=== PATIENT | female | born 1945 | race Caucasian/White ===

== ENCOUNTER 2019-12-20 14:29 | Inpatient (IN) | payer MEDICARE, OTHER, SELFPAY ==
--- NOTE | 2019-12-20 | CTR_ITS ---
PROCEDURE INFORMATION: Exam: CT Head Without Contrast Exam date and time: 12/20/2019 5:03 PM Age: 74 years old Clinical indication: Weakness, extremity; Right; Additional info: Stroke alert TECHNIQUE: Imaging protocol: Computed tomography of the head without contrast. Total DLP: 1294.38 mGy-cm Radiation optimization: All CT scans at this facility use at least one of these dose optimization techniques: automated exposure control; mA and/or kV adjustment per patient size (includes targeted exams where dose is matched to clinical indication); or iterative reconstruction. Other technique: STROKE PROTOCOL was implemented. COMPARISON: CT head wo con* [id number] 12/20/2019 3:37 PM FINDINGS: Brain: Mild diffuse cortical volume loss. Moderate-severe patchy hypodensities in supratentorial periventricular and subcortical white matter. Stable lacunar infarct in the right basal ganglia. No intracranial hemorrhage. Ventricles: Normal. No ventriculomegaly. Bones/joints: Unremarkable. No acute fracture. Sinuses: Visualized sinuses are unremarkable. No fluid levels. Mastoid air cells: Visualized mastoid air cells are well aerated. Soft tissues: Unremarkable. Vasculature: No hyperdense artery. CT/CT head wo con* [id number] IMPRESSION: 1. Stable CT head. No acute intracranial abnormality. 2. Moderate-severe microangiopathy. ASSESSMENT: ASPECTS ([place] Stroke Program Early CT Score) is 10. Radiation Dose CTDIVOL = (mGy): DLP = 1294.38 (mGy-cm)
[2019-12-20 14:39] VITALS: BP 134/99; PULSE 68; RESP 18; O2SAT 97; BMI 29.9
--- NOTE | 2019-12-20 14:50 | CT_ITS ---
WS: [id number] CT HEAD NONCONTRAST HISTORY: fall TECHNIQUE: Contiguous axial imaging performed through the brain in 2.5 mm imaging. Bone and soft tiss ue windows. Sagittal and coronal reformats reviewed. All CT scans at [facility] use at ast one of these dose optimization techniques: automated exposure control; mA and/or kV adjustment pe r patient size (includes targeted exams where dose is matched to clinical indication); or iterative r econstruction. DLP: 775.69 mGy.cm COMPARISON: 05/28/2019 No acute intracranial hemorrhage, midline shift or mass effect. Mild atrophy with severe chronic microvascular ischemic changes. Prior lacunar infarct anterior limb of the RIGHT internal capsule. Ventricles: Ventricles are mildly dilated on the basis of central and peripheral atrophy. No inferio r displacement of cerebellar tonsils. Paranasal sinuses: As visualized are clear. Mastoid air cells: Well pneumatized. Calvarium and scalp: Skull is intact with no soft tissue edema or swelling. Atherosclerosis of the intracranial carotid arteries. CT/CT head wo con* [id number] IMPRESSION: 1. No acute intracranial hemorrhage. 2. Severe chronic microvascular ischemic disease with a remote lacunar infarct RIGHT basal ganglia.
--- NOTE | 2019-12-20 14:51 | W.ED.FALL ---
Documented by User: MERLINE Infante 12/21/19 17:18 HPI - Fall General: Chief Complaint: Fall Stated Complaint: FALL Time Seen by Provider: 12/20/19 14:38 Source: patient Mode of arrival: ambulatory Limitations: no limitations History of Present Illness: HPI Narrative: Patient comes in today for complaints of fall. EMS reported that they had to go out and help patient twice today for a fall. Called EMS encourage patient to come in to be evaluated further. Patient reports that she feels fine but just cannot get up and go today. Patient has pain when she tries to lift the leg off the chair on the right hip. complaint: fall Review of Systems General: Reports: 10 or more systems reviewed and unremarkable except in HPI and below Musc: Reports: joint pain (right hip pain) Neuro: Reports: weakness in extremities PFSH ED PFSH: Statuses (acute, chronic, etc) shown below reflect problem list status as previously entered and may not be historically accurate Medical History COPD (chronic obstructive pulmonary disease) (Acute) Dementia (Acute) HTN (hypertension) (Acute) Hypothyroidism (Acute) Surgical History Hx of section (Acute) Hx of tubal ligation (Acute) Social History Smoking and tobacco status: former smoker Quit status (tobacco): has quit using tobacco Year quit tobacco: She reports quit 22 years ago, although this is not confirmed. Alcohol intake: unknown Substance/Drug Use: unknown Household members: spouse Marital status: Physical Exam Const: COMMON NORMALS: no apparent distress and oriented x3 GENERAL APPEARANCE: cooperative HENMT: COMMON NORMALS: normocephalic, external ears normal, EAC's normal, TM's normal bilaterally and external nose normal HEAD & SCALP: normal to inspection and normocephalic FACE & SINUS: normal facial exam NOSE: external nose normal GENERAL EAR: hearing not grossly impaired EXTERNAL EAR: Yes external ears normal EXTERNAL AUDITORY CANAL: EAC's normal TYMPANIC MEMBRANE: TM's normal bilaterally MOUTH: oral and palatal mucosa normal THROAT: posterior oropharynx normal Eye: COMMON NORMALS: PERRL and EOMs intact bilaterally PUPIL: Yes PERRL Neck/C-Spine: COMMON NORMALS: full ROM and no lymphadenopathy Lymph: LYMPHATIC: no lymphedema noted Chest: COMMONS NORMALS: inspection of chest normal and palpation of chest normal Resp: COMMON NORMALS: normal respiratory effort and clear to auscultation bilaterally AUSCULTATION: clear to auscultation bilaterally Cardio: COMMON NORMALS: regular rate and regular rhythm RATE: regular rate RHYTHM: regular rhythm GI: COMMON NORMALS: normal to inspection, nondistended, normoactive bowel sounds and non-tender : COMMON NORMALS: Yes no CVA tenderness BLADDER/KIDNEY EXAM: Yes no CVA tenderness Back/Pelvis: COMMON NORMALS: no CVA tenderness and thoracic and lumbar spine normal to inspection Extremity: GENERAL: Yes edema RIGHT LOWER EXTREMITY: Yes hip joint (hip pain with movement) Neuro: COMMON NORMALS: oriented x3, moves all extremities and no focal motor deficits Psych: COMMON NORMALS: mental status grossly normal and cooperative Skin: COMMON NORMALS: no rashes or lesions noted GENERAL SKIN EXAM: no rashes or lesions noted Course ED course: 1600, reviewing lab with patient. Patient would like to go home but cannot stand by herself, further evaluation of patient note right leg and arm weakness. and right facial drooping. NIHSS of 8, wjw 1615, reviewed with Dr. Patiño regarding abnormalities on repeat exam, recommended further evaluation. wjw Vital Signs: Vital signs: Vital Signs Temperature 98.2 F 12/21/19 16:00 Pulse Rate 64 12/21/19 16:00 Respiratory Rate 20 H 12/21/19 16:00 Blood Pressure 160/82 12/21/19 16:00 Pulse Oximetry 97 12/21/19 16:00 MDM - Fall MDM Narrative: Medical decision making narrative: patient was brought in for repeat falls at home, after initial evaluation it was noted facial drooping and deficits to right arm and lower leg. Dr. Patiño was consulted and agreed to continue care of patient Lab Data: Labs: Lab Results 12/20/19 12/20/19 12/20/19 Range/Units 15:02 15:02 15:02 WBC 7.2 (4.0-10.0) 10^3/ uL RBC 4.83 (4.1-5.3) 10^6/u L Hgb 14.1 (11.5-15.3) g/dL Hct 43.6 (37.0-47.0) % MCV 90.3 (81-99) fL MCH 29.2 (28.0-34.0) pg MCHC 32.3 (30.0-36.0) g/dL RDW 13.3 (12.1-15.1) % Plt Count 196 (130-400) 10^3/c mm MPV 8.4 (7.4-10.4) fL Neut % (Auto) 70.2 % Lymph % (Auto) 21.3 % [place] % (Auto) 7.8 % Eos % (Auto) 0.1 % Baso % (Auto) 0.3 % Neut # (Auto) 5.0 (1.8-7.7) 10^3/u L Lymph # (Auto) 1.5 (0.8-4.8) 10^3/u L [place] # (Auto) 0.6 (0.2-0.9) 10^3/u L Eos # (Auto) 0.0 (0.0-0.8) 10^3/u L Baso # (Auto) 0.0 (0.0-0.1) 10^3/u L Nucleated RBC % (a uto) 0 % Nucleated RBCs # 0.0 /100WBC Sodium 138 (136-145) mmol/L Potassium 4.3 (3.5-5.1) mmol/L Chloride 103 (98-107) mmol/L Carbon Dioxide 23 (22-29) mmol/L Anion Gap 16.3 (5-19) BUN 12 (8-23) mg/dL Creatinine 0.8 (0.5-0.9) mg/dL Glucose 118 H (74-106) mg/dL Estimat Average Gl ucose Hemoglobin A1c (4.0-6.0) % Lactic Acid 1.5 (0.5-2.2) mmol/L Calcium 9.5 (8.5-10.5) mg/dL Total Bilirubin 0.6 (0.15-1.2) mg/dL AST 14 (0-32) U/L ALT 6 (0-33) U/L Alkaline Phosphata se 69 (35-105) IU/L Ammonia (11-51) umol/L Troponin I 6 Hour (0-10) ng/L Troponin I Hi Sens Del (0-12) ng/L Troponin T Baselin e (0-10) ng/mL Troponin T 120 Min [place] (0-10) ng/mL Delta Troponin T (0-10) ABS# Total Protein 6.6 (6.6-8.7) g/dL Albumin 4.0 (3.5-5.2) g/dL Globulin 2.6 (1.3-4.6) g/dL Vitamin B12 (232-1245) pg/mL Folate (4.8-37.3) ng/mL TSH (0.27-4.20) uIU/ mL Urine Color (Yellow) Urine Appearance (CLEAR) Urine pH (5-7) Ur Specific Gravit y (1.005-1.030) Urine Protein (Negative) Urine Glucose (UA) (Normal) Urine Ketones (Negative) Urine Occult Blood (Negative) Urine Nitrate (Negative) Urine Bilirubin (NEGATIVE) Urine Urobilinogen (Negative) mg/dL Ur Leukocyte Ann ase (Negative) Urine RBC (0-2) /hpf Urine WBC (0-5) /hpf Ur Squamous Epith Cells (0-5) Urine Bacteria (NONE) Urine Opiates Scre en (Negative) ng/mL Ur Barbiturates Sc reen (Negative) ng/mL Ur Phencyclidine S crn (Negative) ng/mL Ur Amphetamines Sc reen (Negative) ng/mL U Benzodiazepines Scrn (Negative) ng/mL Urine Cocaine Scre en (Negative) ng/mL U Marijuana (THC) Screen (Negative) ng/mL Ethyl Alcohol (0-10) mg/dL 12/20/19 12/20/19 12/20/19 Range/Units 15:02 15:02 15:02 WBC (4.0-10.0) 10^3/ uL RBC (4.1-5.3) 10^6/u L Hgb (11.5-15.3) g/dL Hct (37.0-47.0) % MCV (81-99) fL MCH (28.0-34.0) pg MCHC (30.0-36.0) g/dL RDW (12.1-15.1) % Plt Count (130-400) 10^3/c mm MPV (7.4-10.4) fL Neut % (Auto) % Lymph % (Auto) % [place] % (Auto) % Eos % (Auto) % Baso % (Auto) % Neut # (Auto) (1.8-7.7) 10^3/u L Lymph # (Auto) (0.8-4.8) 10^3/u L [place] # (Auto) (0.2-0.9) 10^3/u L Eos # (Auto) (0.0-0.8) 10^3/u L Baso # (Auto) (0.0-0.1) 10^3/u L Nucleated RBC % (a uto) % Nucleated RBCs # /100WBC Sodium (136-145) mmol/L Potassium (3.5-5.1) mmol/L Chloride (98-107) mmol/L Carbon Dioxide (22-29) mmol/L Anion Gap (5-19) BUN (8-23) mg/dL Creatinine (0.5-0.9) mg/dL Glucose (74-106) mg/dL Estimat Average Gl ucose 111 Hemoglobin A1c 5.5 (4.0-6.0) % Lactic Acid (0.5-2.2) mmol/L Calcium (8.5-10.5) mg/dL Total Bilirubin (0.15-1.2) mg/dL AST (0-32) U/L ALT (0-33) U/L Alkaline Phosphata se (35-105) IU/L Ammonia (11-51) umol/L Troponin I 6 Hour (0-10) ng/L Troponin I Hi Sens Del (0-12) ng/L Troponin T Baselin e 12 H (0-10) ng/mL Troponin T 120 Min [place] (0-10) ng/mL Delta Troponin T (0-10) ABS# Total Protein (6.6-8.7) g/dL Albumin (3.5-5.2) g/dL Globulin (1.3-4.6) g/dL Vitamin B12 (232-1245) pg/mL Folate (4.8-37.3) ng/mL TSH (0.27-4.20) uIU/ mL Urine Color (Yellow) Urine Appearance (CLEAR) Urine pH (5-7) Ur Specific Gravit y (1.005-1.030) Urine Protein (Negative) Urine Glucose (UA) (Normal) Urine Ketones (Negative) Urine Occult Blood (Negative) Urine Nitrate (Negative) Urine Bilirubin (NEGATIVE) Urine Urobilinogen (Negative) mg/dL Ur Leukocyte Ann ase (Negative) Urine RBC (0-2) /hpf Urine WBC (0-5) /hpf Ur Squamous Epith Cells (0-5) Urine Bacteria (NONE) Urine Opiates Scre en (Negative) ng/mL Ur Barbiturates Sc reen (Negative) ng/mL Ur Phencyclidine S crn (Negative) ng/mL Ur Amphetamines Sc reen (Negative) ng/mL U Benzodiazepines Scrn (Negative) ng/mL Urine Cocaine Scre en (Negative) ng/mL U Marijuana (THC) Screen (Negative) ng/mL Ethyl Alcohol < 10 (0-10) mg/dL 12/20/19 12/20/19 12/20/19 Range/Units 15:02 17:16 17:16 WBC (4.0-10.0) 10^3/ uL RBC (4.1-5.3) 10^6/u L Hgb (11.5-15.3) g/dL Hct (37.0-47.0) % MCV (81-99) fL MCH (28.0-34.0) pg MCHC (30.0-36.0) g/dL RDW (12.1-15.1) % Plt Count (130-400) 10^3/c mm MPV (7.4-10.4) fL Neut % (Auto) % Lymph % (Auto) % [place] % (Auto) % Eos % (Auto) % Baso % (Auto) % Neut # (Auto) (1.8-7.7) 10^3/u L Lymph # (Auto) (0.8-4.8) 10^3/u L [place] # (Auto) (0.2-0.9) 10^3/u L Eos # (Auto) (0.0-0.8) 10^3/u L Baso # (Auto) (0.0-0.1) 10^3/u L Nucleated RBC % (a uto) % Nucleated RBCs # /100WBC Sodium (136-145) mmol/L Potassium (3.5-5.1) mmol/L Chloride (98-107) mmol/L Carbon Dioxide (22-29) mmol/L Anion Gap (5-19) BUN (8-23) mg/dL Creatinine (0.5-0.9) mg/dL Glucose (74-106) mg/dL Estimat Average Gl ucose Hemoglobin A1c (4.0-6.0) % Lactic Acid (0.5-2.2) mmol/L Calcium (8.5-10.5) mg/dL Total Bilirubin (0.15-1.2) mg/dL AST (0-32) U/L ALT (0-33) U/L Alkaline Phosphata se (35-105) IU/L Ammonia (11-51) umol/L Troponin I 6 Hour (0-10) ng/L Troponin I Hi Sens Del (0-12) ng/L Troponin T Baselin e (0-10) ng/mL Troponin T 120 Min [place] 11.77 H (0-10) ng/mL Delta Troponin T -0.23 L (0-10) ABS# Total Protein (6.6-8.7) g/dL Albumin (3.5-5.2) g/dL Globulin (1.3-4.6) g/dL Vitamin B12 196 L (232-1245) pg/mL Folate 2.1 L (4.8-37.3) ng/mL TSH 3.76 (0.27-4.20) uIU/ mL Urine Color (Yellow) Urine Appearance (CLEAR) Urine pH (5-7) Ur Specific Gravit y (1.005-1.030) Urine Protein (Negative) Urine Glucose (UA) (Normal) Urine Ketones (Negative) Urine Occult Blood (Negative) Urine Nitrate (Negative) Urine Bilirubin (NEGATIVE) Urine Urobilinogen (Negative) mg/dL Ur Leukocyte Ann ase (Negative) Urine RBC (0-2) /hpf Urine WBC (0-5) /hpf Ur Squamous Epith Cells (0-5) Urine Bacteria (NONE) Urine Opiates Scre en (Negative) ng/mL Ur Barbiturates Sc reen (Negative) ng/mL Ur Phencyclidine S crn (Negative) ng/mL Ur Amphetamines Sc reen (Negative) ng/mL U Benzodiazepines Scrn (Negative) ng/mL Urine Cocaine Scre en (Negative) ng/mL U Marijuana (THC) Screen (Negative) ng/mL Ethyl Alcohol (0-10) mg/dL 12/20/19 12/20/19 12/21/19 Range/Units 17:30 22:15 00:46 WBC (4.0-10.0) 10^3/ uL RBC (4.1-5.3) 10^6/u L Hgb (11.5-15.3) g/dL Hct (37.0-47.0) % MCV (81-99) fL MCH (28.0-34.0) pg MCHC (30.0-36.0) g/dL RDW (12.1-15.1) % Plt Count (130-400) 10^3/c mm MPV (7.4-10.4) fL Neut % (Auto) % Lymph % (Auto) % [place] % (Auto) % Eos % (Auto) % Baso % (Auto) % Neut # (Auto) (1.8-7.7) 10^3/u L Lymph # (Auto) (0.8-4.8) 10^3/u L [place] # (Auto) (0.2-0.9) 10^3/u L Eos # (Auto) (0.0-0.8) 10^3/u L Baso # (Auto) (0.0-0.1) 10^3/u L Nucleated RBC % (a uto) % Nucleated RBCs # /100WBC Sodium (136-145) mmol/L Potassium (3.5-5.1) mmol/L Chloride (98-107) mmol/L Carbon Dioxide (22-29) mmol/L Anion Gap (5-19) BUN (8-23) mg/dL Creatinine (0.5-0.9) mg/dL Glucose (74-106) mg/dL Estimat Average Gl ucose Hemoglobin A1c (4.0-6.0) % Lactic Acid (0.5-2.2) mmol/L Calcium (8.5-10.5) mg/dL Total Bilirubin (0.15-1.2) mg/dL AST (0-32) U/L ALT (0-33) U/L Alkaline Phosphata se (35-105) IU/L Ammonia 23 (11-51) umol/L Troponin I 6 Hour 12.81 H (0-10) ng/L Troponin I Hi Sens Del 0.81 (0-12) ng/L Troponin T Baselin e (0-10) ng/mL Troponin T 120 Min [place] (0-10) ng/mL Delta Troponin T (0-10) ABS# Total Protein (6.6-8.7) g/dL Albumin (3.5-5.2) g/dL Globulin (1.3-4.6) g/dL Vitamin B12 (232-1245) pg/mL Folate (4.8-37.3) ng/mL TSH (0.27-4.20) uIU/ mL Urine Color (Yellow) Urine Appearance (CLEAR) Urine pH (5-7) Ur Specific Gravit y (1.005-1.030) Urine Protein (Negative) Urine Glucose (UA) (Normal) Urine Ketones (Negative) Urine Occult Blood (Negative) Urine Nitrate (Negative) Urine Bilirubin (NEGATIVE) Urine Urobilinogen (Negative) mg/dL Ur Leukocyte Ann ase (Negative) Urine RBC (0-2) /hpf Urine WBC (0-5) /hpf Ur Squamous Epith Cells (0-5) Urine Bacteria (NONE) Urine Opiates Scre en Negative (Negative) ng/mL Ur Barbiturates Sc reen Negative (Negative) ng/mL Ur Phencyclidine S crn Negative (Negative) ng/mL Ur Amphetamines Sc reen Negative (Negative) ng/mL U Benzodiazepines Scrn Negative (Negative) ng/mL Urine Cocaine Scre en Negative (Negative) ng/mL U Marijuana (THC) Screen Negative (Negative) ng/mL Ethyl Alcohol (0-10) mg/dL 12/21/19 12/21/19 12/21/19 Range/Units 00:46 03:57 03:57 WBC 6.0 (4.0-10.0) 10^3/ uL RBC 4.28 (4.1-5.3) 10^6/u L Hgb 12.8 (11.5-15.3) g/dL Hct 37.9 (37.0-47.0) % MCV 88.6 (81-99) fL MCH 29.9 (28.0-34.0) pg MCHC 33.8 (30.0-36.0) g/dL RDW 13.3 (12.1-15.1) % Plt Count 177 (130-400) 10^3/c mm MPV 8.6 (7.4-10.4) fL Neut % (Auto) 49.9 % Lymph % (Auto) 41.1 % [place] % (Auto) 7.6 % Eos % (Auto) 0.8 % Baso % (Auto) 0.3 % Neut # (Auto) 3.0 (1.8-7.7) 10^3/u L Lymph # (Auto) 2.5 (0.8-4.8) 10^3/u L [place] # (Auto) 0.5 (0.2-0.9) 10^3/u L Eos # (Auto) 0.1 (0.0-0.8) 10^3/u L Baso # (Auto) 0.0 (0.0-0.1) 10^3/u L Nucleated RBC % (a uto) 0 % Nucleated RBCs # 0.0 /100WBC Sodium 138 (136-145) mmol/L Potassium 3.8 (3.5-5.1) mmol/L Chloride 104 (98-107) mmol/L Carbon Dioxide 24 (22-29) mmol/L Anion Gap 13.8 (5-19) BUN 10 (8-23) mg/dL Creatinine 0.7 (0.5-0.9) mg/dL Glucose 113 H (74-106) mg/dL Estimat Average Gl ucose Hemoglobin A1c (4.0-6.0) % Lactic Acid (0.5-2.2) mmol/L Calcium 8.7 (8.5-10.5) mg/dL Total Bilirubin 0.6 (0.15-1.2) mg/dL AST 14 (0-32) U/L ALT 6 (0-33) U/L Alkaline Phosphata se 57 (35-105) IU/L Ammonia (11-51) umol/L Troponin I 6 Hour (0-10) ng/L Troponin I Hi Sens Del (0-12) ng/L Troponin T Baselin e (0-10) ng/mL Troponin T 120 Min [place] (0-10) ng/mL Delta Troponin T (0-10) ABS# Total Protein 5.5 L (6.6-8.7) g/dL Albumin 3.1 L (3.5-5.2) g/dL Globulin 2.4 (1.3-4.6) g/dL Vitamin B12 (232-1245) pg/mL Folate (4.8-37.3) ng/mL TSH (0.27-4.20) uIU/ mL Urine Color Yellow (Yellow) Urine Appearance Clear (CLEAR) Urine pH 8 H (5-7) Ur Specific Gravit y 1.010 (1.005-1.030) Urine Protein Neg (Negative) Urine Glucose (UA) Norm (Normal) Urine Ketones Negative (Negative) Urine Occult Blood Trace H (Negative) Urine Nitrate Negative (Negative) Urine Bilirubin Neg (NEGATIVE) Urine Urobilinogen Norm (Negative) mg/dL Ur Leukocyte Ann ase 2+ H (Negative) Urine RBC 5-10 H (0-2) /hpf Urine WBC 80-100 H (0-5) /hpf Ur Squamous Epith Cells 0-4 H (0-5) Urine Bacteria 2+ H (NONE) Urine Opiates Scre en (Negative) ng/mL Ur Barbiturates Sc reen (Negative) ng/mL Ur Phencyclidine S crn (Negative) ng/mL Ur Amphetamines Sc reen (Negative) ng/mL U Benzodiazepines Scrn (Negative) ng/mL Urine Cocaine Scre en (Negative) ng/mL U Marijuana (THC) Screen (Negative) ng/mL Ethyl Alcohol (0-10) mg/dL Discharge Plan Discharge Patient Disposition: Admitted As Inpatient Admit Provider: Douglas Charles Clinical Impression: Acute CVA (cerebrovascular accident), HTN (hypertension), COPD (chronic obstructive pulmonary disease), Hypothyroidism, Dementia, Recurrent falls Condition: Stable Discharge Date/Time: 12/20/19 21:38 Coding Level of Care Code ED Flue Cleaner for Chg Fwd Exam Problem Focused Documented by User: James Patiño DO 12/21/19 06:08 HPI - Fall General: Chief Complaint: Fall Stated Complaint: FALL Time Seen by Provider: 12/20/19 14:38 History of Present Illness: HPI Narrative: 74-year-old female initially seen by the PA. She has weakness on her right side. The nurse scored her at an 8 when I seen the patient on this recording we are ready for. She does have little speech almost slurring like however when talking to her he says is what she normally talks like she is able to pronounce complicated words like adversarial without any difficulty. I score her out of 4. When you look for last known well her relates that sometime around 8 this morning he noticed there is a problem but he cannot really quantify if she woke up that way or did not so there is some question as to exactly what time this began and it may have been a wake-up issue. She is not interested in any kind of intervention and actually wanted to go home had to convince her to stay just for observation because of the continued weakness particularly in her right leg. Associated symptoms-after fall: Denies abdominal pain or chest pain Review of Systems Const: Denies: fever, chills, body aches, change in appetite, fatigue or malaise ENMT: Denies: throat pain, ear pain, nasal discharge or nasal congestion Card: Denies: chest pain, edema, shortness of breath on exertion or shortness of breath when lying down Resp: Denies: shortness of breath, productive cough or non-productive cough GI: Denies: abdominal pain, nausea, vomiting, vomiting blood, coffee grounds in vomit, diarrhea, constipation, bloating, blood in stool or black tarry stool : Denies: flank pain, difficulty urinating, painful urination, urinary frequency or urinary urgency Skin/Breast: Denies: rash or itching PFSH ED PFSH: Statuses (acute, chronic, etc) shown below reflect problem list status as previously entered and may not be historically accurate Medical History COPD (chronic obstructive pulmonary disease) (Acute) Dementia (Acute) HTN (hypertension) (Acute) Hypothyroidism (Acute) Surgical History Hx of section (Acute) Hx of tubal ligation (Acute) Social History Smoking and tobacco status: former smoker Quit status (tobacco): has quit using tobacco Year quit tobacco: She reports quit 22 years ago, although this is not confirmed. Alcohol intake: unknown Substance/Drug Use: unknown Household members: spouse Marital status: Physical Exam Const: COMMON NORMALS: no apparent distress GENERAL APPEARANCE: comfortable ORIENTATION/CONSCIOUSNESS: Yes awake HENMT: COMMON NORMALS: normocephalic, head/scalp atraumatic, hearing grossly normal bilaterally, external ears normal, EAC's normal, TM's normal bilaterally, nasal mucous membranes and turbinates normal, moist oral mucous membranes and oropharynx normal HEAD & SCALP: normocephalic and atraumatic NOSE: nasal mucous membranes and turbinates normal EXTERNAL EAR: Yes external ears normal EXTERNAL AUDITORY CANAL: EAC's normal TYMPANIC MEMBRANE: TM's normal bilaterally Eye: COMMON NORMALS: PERRL, EOMs intact bilaterally, conjunctivae normal and no scleral icterus CONJUNCTIVA: Yes conjunctivae normal PUPIL: Yes PERRL Neck/C-Spine: COMMON NORMALS: full ROM, no lymphadenopathy, supple and no JVD Lymph: LYMPHATIC: no lymphadenopathy noted and no lymphedema noted Resp: COMMON NORMALS: normal respiratory effort, no retractions, no use of accessory muscles and clear to auscultation bilaterally AUSCULTATION: clear to auscultation bilaterally Cardio: COMMON NORMALS: no JVD, regular rate, regular rhythm and no murmurs RATE: regular rate RHYTHM: regular rhythm GI: COMMON NORMALS: soft to palpation and no hepatosplenomegaly AUSCULTATION: Yes normoactive bowel sounds PALPATION: Yes soft, No tender, No guarding and Yes no hepatosplenomegaly Extremity: COMMON NORMALS: normal to inspection, normal capillary refill, no clubbing, cyanosis or edema, no calf tenderness and no pedal edema Neuro: SPEECH: no other OTHER: Patient has weakness on the right side with some right arm drift she is not able to lift the heel off the bed on the right leg. She is somewhat confused she does not recall that she previously had a right hip arthroplasty which is demonstrated on x-ray. She is able to enunciate words quite well she is a little speech variance but according to her that is her normal baseline. She does have some confusion as well which she also states is at her normal baseline. Skin: COMMON NORMALS: no rashes or lesions noted GENERAL SKIN EXAM: no rashes or lesions noted Course ED course: Patient initially seen by midlevel I CT was done and a stroke alert was called and another CT evidently was done both of which were negative. We cannot really get a very solid last known well time she does have some baseline dementia which also confuses things. Her stroke score at this time is a 4 felt like she may have already improved some. The triage nurse had her as an 8 her states he first encounter this morning at 8 AM but he is not sure that she did not wake up with some of her symptoms. Patient is not interested at all in doing anything in fact we had to convince her to stay here at the hospital. I do think she may have had a small stroke but is already improving she is outside of any window of time for TPA and her stroke score at the time that I seen the patient was a 4 taking her outside the window for any thrombo-embolic intervention. Vital Signs: Vital signs: Vital Signs Temperature 98.2 F 12/21/19 16:00 Pulse Rate 64 12/21/19 16:00 Respiratory Rate 20 H 12/21/19 16:00 Blood Pressure 160/82 12/21/19 16:00 Pulse Oximetry 97 12/21/19 16:00 MDM - Fall Lab Data: Labs: Lab Results 12/20/19 12/20/19 12/20/19 Range/Units 15:02 15:02 15:02 WBC 7.2 (4.0-10.0) 10^3/ uL RBC 4.83 (4.1-5.3) 10^6/u L Hgb 14.1 (11.5-15.3) g/dL Hct 43.6 (37.0-47.0) % MCV 90.3 (81-99) fL MCH 29.2 (28.0-34.0) pg MCHC 32.3 (30.0-36.0) g/dL RDW 13.3 (12.1-15.1) % Plt Count 196 (130-400) 10^3/c mm MPV 8.4 (7.4-10.4) fL Neut % (Auto) 70.2 % Lymph % (Auto) 21.3 % [place] % (Auto) 7.8 % Eos % (Auto) 0.1 % Baso % (Auto) 0.3 % Neut # (Auto) 5.0 (1.8-7.7) 10^3/u L Lymph # (Auto) 1.5 (0.8-4.8) 10^3/u L [place] # (Auto) 0.6 (0.2-0.9) 10^3/u L Eos # (Auto) 0.0 (0.0-0.8) 10^3/u L Baso # (Auto) 0.0 (0.0-0.1) 10^3/u L Nucleated RBC % (a uto) 0 % Nucleated RBCs # 0.0 /100WBC Sodium 138 (136-145) mmol/L Potassium 4.3 (3.5-5.1) mmol/L Chloride 103 (98-107) mmol/L Carbon Dioxide 23 (22-29) mmol/L Anion Gap 16.3 (5-19) BUN 12 (8-23) mg/dL Creatinine 0.8 (0.5-0.9) mg/dL Glucose 118 H (74-106) mg/dL Estimat Average Gl ucose Hemoglobin A1c (4.0-6.0) % Lactic Acid 1.5 (0.5-2.2) mmol/L Calcium 9.5 (8.5-10.5) mg/dL Total Bilirubin 0.6 (0.15-1.2) mg/dL AST 14 (0-32) U/L ALT 6 (0-33) U/L Alkaline Phosphata se 69 (35-105) IU/L Ammonia (11-51) umol/L Troponin I 6 Hour (0-10) ng/L Troponin I Hi Sens Del (0-12) ng/L Troponin T Baselin e (0-10) ng/mL Troponin T 120 Min [place] (0-10) ng/mL Delta Troponin T (0-10) ABS# Total Protein 6.6 (6.6-8.7) g/dL Albumin 4.0 (3.5-5.2) g/dL Globulin 2.6 (1.3-4.6) g/dL Vitamin B12 (232-1245) pg/mL Folate (4.8-37.3) ng/mL TSH (0.27-4.20) uIU/ mL Urine Color (Yellow) Urine Appearance (CLEAR) Urine pH (5-7) Ur Specific Gravit y (1.005-1.030) Urine Protein (Negative) Urine Glucose (UA) (Normal) Urine Ketones (Negative) Urine Occult Blood (Negative) Urine Nitrate (Negative) Urine Bilirubin (NEGATIVE) Urine Urobilinogen (Negative) mg/dL Ur Leukocyte Ann ase (Negative) Urine RBC (0-2) /hpf Urine WBC (0-5) /hpf Ur Squamous Epith Cells (0-5) Urine Bacteria (NONE) Urine Opiates Scre en (Negative) ng/mL Ur Barbiturates Sc reen (Negative) ng/mL Ur Phencyclidine S crn (Negative) ng/mL Ur Amphetamines Sc reen (Negative) ng/mL U Benzodiazepines Scrn (Negative) ng/mL Urine Cocaine Scre en (Negative) ng/mL U Marijuana (THC) Screen (Negative) ng/mL Ethyl Alcohol (0-10) mg/dL 12/20/19 12/20/19 12/20/19 Range/Units 15:02 15:02 15:02 WBC (4.0-10.0) 10^3/ uL RBC (4.1-5.3) 10^6/u L Hgb (11.5-15.3) g/dL Hct (37.0-47.0) % MCV (81-99) fL MCH (28.0-34.0) pg MCHC (30.0-36.0) g/dL RDW (12.1-15.1) % Plt Count (130-400) 10^3/c mm MPV (7.4-10.4) fL Neut % (Auto) % Lymph % (Auto) % [place] % (Auto) % Eos % (Auto) % Baso % (Auto) % Neut # (Auto) (1.8-7.7) 10^3/u L Lymph # (Auto) (0.8-4.8) 10^3/u L [place] # (Auto) (0.2-0.9) 10^3/u L Eos # (Auto) (0.0-0.8) 10^3/u L Baso # (Auto) (0.0-0.1) 10^3/u L Nucleated RBC % (a uto) % Nucleated RBCs # /100WBC Sodium (136-145) mmol/L Potassium (3.5-5.1) mmol/L Chloride (98-107) mmol/L Carbon Dioxide (22-29) mmol/L Anion Gap (5-19) BUN (8-23) mg/dL Creatinine (0.5-0.9) mg/dL Glucose (74-106) mg/dL Estimat Average Gl ucose 111 Hemoglobin A1c 5.5 (4.0-6.0) % Lactic Acid (0.5-2.2) mmol/L Calcium (8.5-10.5) mg/dL Total Bilirubin (0.15-1.2) mg/dL AST (0-32) U/L ALT (0-33) U/L Alkaline Phosphata se (35-105) IU/L Ammonia (11-51) umol/L Troponin I 6 Hour (0-10) ng/L Troponin I Hi Sens Del (0-12) ng/L Troponin T Baselin e 12 H (0-10) ng/mL Troponin T 120 Min [place] (0-10) ng/mL Delta Troponin T (0-10) ABS# Total Protein (6.6-8.7) g/dL Albumin (3.5-5.2) g/dL Globulin (1.3-4.6) g/dL Vitamin B12 (232-1245) pg/mL Folate (4.8-37.3) ng/mL TSH (0.27-4.20) uIU/ mL Urine Color (Yellow) Urine Appearance (CLEAR) Urine pH (5-7) Ur Specific Gravit y (1.005-1.030) Urine Protein (Negative) Urine Glucose (UA) (Normal) Urine Ketones (Negative) Urine Occult Blood (Negative) Urine Nitrate (Negative) Urine Bilirubin (NEGATIVE) Urine Urobilinogen (Negative) mg/dL Ur Leukocyte Ann ase (Negative) Urine RBC (0-2) /hpf Urine WBC (0-5) /hpf Ur Squamous Epith Cells (0-5) Urine Bacteria (NONE) Urine Opiates Scre en (Negative) ng/mL Ur Barbiturates Sc reen (Negative) ng/mL Ur Phencyclidine S crn (Negative) ng/mL Ur Amphetamines Sc reen (Negative) ng/mL U Benzodiazepines Scrn (Negative) ng/mL Urine Cocaine Scre en (Negative) ng/mL U Marijuana (THC) Screen (Negative) ng/mL Ethyl Alcohol < 10 (0-10) mg/dL 12/20/19 12/20/19 12/20/19 Range/Units 15:02 17:16 17:16 WBC (4.0-10.0) 10^3/ uL RBC (4.1-5.3) 10^6/u L Hgb (11.5-15.3) g/dL Hct (37.0-47.0) % MCV (81-99) fL MCH (28.0-34.0) pg MCHC (30.0-36.0) g/dL RDW (12.1-15.1) % Plt Count (130-400) 10^3/c mm MPV (7.4-10.4) fL Neut % (Auto) % Lymph % (Auto) % [place] % (Auto) % Eos % (Auto) % Baso % (Auto) % Neut # (Auto) (1.8-7.7) 10^3/u L Lymph # (Auto) (0.8-4.8) 10^3/u L [place] # (Auto) (0.2-0.9) 10^3/u L Eos # (Auto) (0.0-0.8) 10^3/u L Baso # (Auto) (0.0-0.1) 10^3/u L Nucleated RBC % (a uto) % Nucleated RBCs # /100WBC Sodium (136-145) mmol/L Potassium (3.5-5.1) mmol/L Chloride (98-107) mmol/L Carbon Dioxide (22-29) mmol/L Anion Gap (5-19) BUN (8-23) mg/dL Creatinine (0.5-0.9) mg/dL Glucose (74-106) mg/dL Estimat Average Gl ucose Hemoglobin A1c (4.0-6.0) % Lactic Acid (0.5-2.2) mmol/L Calcium (8.5-10.5) mg/dL Total Bilirubin (0.15-1.2) mg/dL AST (0-32) U/L ALT (0-33) U/L Alkaline Phosphata se (35-105) IU/L Ammonia (11-51) umol/L Troponin I 6 Hour (0-10) ng/L Troponin I Hi Sens Del (0-12) ng/L Troponin T Baselin e (0-10) ng/mL Troponin T 120 Min [place] 11.77 H (0-10) ng/mL Delta Troponin T -0.23 L (0-10) ABS# Total Protein (6.6-8.7) g/dL Albumin (3.5-5.2) g/dL Globulin (1.3-4.6) g/dL Vitamin B12 196 L (232-1245) pg/mL Folate 2.1 L (4.8-37.3) ng/mL TSH 3.76 (0.27-4.20) uIU/ mL Urine Color (Yellow) Urine Appearance (CLEAR) Urine pH (5-7) Ur Specific Gravit y (1.005-1.030) Urine Protein (Negative) Urine Glucose (UA) (Normal) Urine Ketones (Negative) Urine Occult Blood (Negative) Urine Nitrate (Negative) Urine Bilirubin (NEGATIVE) Urine Urobilinogen (Negative) mg/dL Ur Leukocyte Ann ase (Negative) Urine RBC (0-2) /hpf Urine WBC (0-5) /hpf Ur Squamous Epith Cells (0-5) Urine Bacteria (NONE) Urine Opiates Scre en (Negative) ng/mL Ur Barbiturates Sc reen (Negative) ng/mL Ur Phencyclidine S crn (Negative) ng/mL Ur Amphetamines Sc reen (Negative) ng/mL U Benzodiazepines Scrn (Negative) ng/mL Urine Cocaine Scre en (Negative) ng/mL U Marijuana (THC) Screen (Negative) ng/mL Ethyl Alcohol (0-10) mg/dL 12/20/19 12/20/19 12/21/19 Range/Units 17:30 22:15 00:46 WBC (4.0-10.0) 10^3/ uL RBC (4.1-5.3) 10^6/u L Hgb (11.5-15.3) g/dL Hct (37.0-47.0) % MCV (81-99) fL MCH (28.0-34.0) pg MCHC (30.0-36.0) g/dL RDW (12.1-15.1) % Plt Count (130-400) 10^3/c mm MPV (7.4-10.4) fL Neut % (Auto) % Lymph % (Auto) % [place] % (Auto) % Eos % (Auto) % Baso % (Auto) % Neut # (Auto) (1.8-7.7) 10^3/u L Lymph # (Auto) (0.8-4.8) 10^3/u L Kenedy # (Auto) (0.2-0.9) 10^3/u L Eos # (Auto) (0.0-0.8) 10^3/u L Baso # (Auto) (0.0-0.1) 10^3/u L Nucleated RBC % (a uto) % Nucleated RBCs # /100WBC Sodium (136-145) mmol/L Potassium (3.5-5.1) mmol/L Chloride (98-107) mmol/L Carbon Dioxide (22-29) mmol/L Anion Gap (5-19) BUN (8-23) mg/dL Creatinine (0.5-0.9) mg/dL Glucose (74-106) mg/dL Estimat Average Gl ucose Hemoglobin A1c (4.0-6.0) % Lactic Acid (0.5-2.2) mmol/L Calcium (8.5-10.5) mg/dL Total Bilirubin (0.15-1.2) mg/dL AST (0-32) U/L ALT (0-33) U/L Alkaline Phosphata se (35-105) IU/L Ammonia 23 (11-51) umol/L Troponin I 6 Hour 12.81 H (0-10) ng/L Troponin I Hi Sens Del 0.81 (0-12) ng/L Troponin T Baselin e (0-10) ng/mL Troponin T 120 Min [place] (0-10) ng/mL Delta Troponin T (0-10) ABS# Total Protein (6.6-8.7) g/dL Albumin (3.5-5.2) g/dL Globulin (1.3-4.6) g/dL Vitamin B12 (232-1245) pg/mL Folate (4.8-37.3) ng/mL TSH (0.27-4.20) uIU/ mL Urine Color (Yellow) Urine Appearance (CLEAR) Urine pH (5-7) Ur Specific Gravit y (1.005-1.030) Urine Protein (Negative) Urine Glucose (UA) (Normal) Urine Ketones (Negative) Urine Occult Blood (Negative) Urine Nitrate (Negative) Urine Bilirubin (NEGATIVE) Urine Urobilinogen (Negative) mg/dL Ur Leukocyte Ann ase (Negative) Urine RBC (0-2) /hpf Urine WBC (0-5) /hpf Ur Squamous Epith Cells (0-5) Urine Bacteria (NONE) Urine Opiates Scre en Negative (Negative) ng/mL Ur Barbiturates Sc reen Negative (Negative) ng/mL Ur Phencyclidine S crn Negative (Negative) ng/mL Ur Amphetamines Sc reen Negative (Negative) ng/mL U Benzodiazepines Scrn Negative (Negative) ng/mL Urine Cocaine Scre en Negative (Negative) ng/mL U Marijuana (THC) Screen Negative (Negative) ng/mL Ethyl Alcohol (0-10) mg/dL 12/21/19 12/21/19 12/21/19 Range/Units 00:46 03:57 03:57 WBC 6.0 (4.0-10.0) 10^3/ uL RBC 4.28 (4.1-5.3) 10^6/u L Hgb 12.8 (11.5-15.3) g/dL Hct 37.9 (37.0-47.0) % MCV 88.6 (81-99) fL MCH 29.9 (28.0-34.0) pg MCHC 33.8 (30.0-36.0) g/dL RDW 13.3 (12.1-15.1) % Plt Count 177 (130-400) 10^3/c mm MPV 8.6 (7.4-10.4) fL Neut % (Auto) 49.9 % Lymph % (Auto) 41.1 % [place] % (Auto) 7.6 % Eos % (Auto) 0.8 % Baso % (Auto) 0.3 % Neut # (Auto) 3.0 (1.8-7.7) 10^3/u L Lymph # (Auto) 2.5 (0.8-4.8) 10^3/u L [place] # (Auto) 0.5 (0.2-0.9) 10^3/u L Eos # (Auto) 0.1 (0.0-0.8) 10^3/u L Baso # (Auto) 0.0 (0.0-0.1) 10^3/u L Nucleated RBC % (a uto) 0 % Nucleated RBCs # 0.0 /100WBC Sodium 138 (136-145) mmol/L Potassium 3.8 (3.5-5.1) mmol/L Chloride 104 (98-107) mmol/L Carbon Dioxide 24 (22-29) mmol/L Anion Gap 13.8 (5-19) BUN 10 (8-23) mg/dL Creatinine 0.7 (0.5-0.9) mg/dL Glucose 113 H (74-106) mg/dL Estimat Average Gl ucose Hemoglobin A1c (4.0-6.0) % Lactic Acid (0.5-2.2) mmol/L Calcium 8.7 (8.5-10.5) mg/dL Total Bilirubin 0.6 (0.15-1.2) mg/dL AST 14 (0-32) U/L ALT 6 (0-33) U/L Alkaline Phosphata se 57 (35-105) IU/L Ammonia (11-51) umol/L Troponin I 6 Hour (0-10) ng/L Troponin I Hi Sens Del (0-12) ng/L Troponin T Baselin e (0-10) ng/mL Troponin T 120 Min [place] (0-10) ng/mL Delta Troponin T (0-10) ABS# Total Protein 5.5 L (6.6-8.7) g/dL Albumin 3.1 L (3.5-5.2) g/dL Globulin 2.4 (1.3-4.6) g/dL Vitamin B12 (232-1245) pg/mL Folate (4.8-37.3) ng/mL TSH (0.27-4.20) uIU/ mL Urine Color Yellow (Yellow) Urine Appearance Clear (CLEAR) Urine pH 8 H (5-7) Ur Specific Gravit y 1.010 (1.005-1.030) Urine Protein Neg (Negative) Urine Glucose (UA) Norm (Normal) Urine Ketones Negative (Negative) Urine Occult Blood Trace H (Negative) Urine Nitrate Negative (Negative) Urine Bilirubin Neg (NEGATIVE) Urine Urobilinogen Norm (Negative) mg/dL Ur Leukocyte Ann ase 2+ H (Negative) Urine RBC 5-10 H (0-2) /hpf Urine WBC 80-100 H (0-5) /hpf Ur Squamous Epith Cells 0-4 H (0-5) Urine Bacteria 2+ H (NONE) Urine Opiates Scre en (Negative) ng/mL Ur Barbiturates Sc reen (Negative) ng/mL Ur Phencyclidine S crn (Negative) ng/mL Ur Amphetamines Sc reen (Negative) ng/mL U Benzodiazepines Scrn (Negative) ng/mL Urine Cocaine Scre en (Negative) ng/mL U Marijuana (THC) Screen (Negative) ng/mL Ethyl Alcohol (0-10) mg/dL Discharge Plan Discharge Patient Disposition: Admitted As Inpatient Admit Provider: Douglas Charles Clinical Impression: Acute CVA (cerebrovascular accident), HTN (hypertension), COPD (chronic obstructive pulmonary disease), Hypothyroidism, Dementia, Recurrent falls Condition: Stable Discharge Date/Time: 12/20/19 21:38 Coding Level of Care Code ED Flue Cleaner for Naresh More Exam Problem Focused NIH stroke score NIHSS Level Of Consciousness - 1a: 0 Level Of Consciousness Questions - 1b: Both Correct Level Of Consciousness Commands - 1c: Both Correct Best Gaze - 2: Normal Visual Brewer - 3: No Visual Loss Facial Palsy - 4: Minor Paralysis Motor Arm Right - 5: No Drift Motor Arm Left - 5: No Drift Motor Leg Right - 6: Effort Against [place] Motor Leg Left - 6: No Drift Limb Ataxia - 7: Absent Sensory - 8: Mild To Moderate Loss (vague) Best Language - 9: No Aphasia Dysarthia - 10: Normal Extinction And Inattention - 11: 0 Score Total Score: 4
--- NOTE | 2019-12-20 14:55 | XR_ITS ---
WS: [id number] RIGHT HIP HISTORY: fall COMPARISON: 09/10/2011 Right hip: No acute fracture or dislocation. Status post RIGHT arthroplasty. No adverse appearance of the prosthesis. Prosthesis is new since 2010. XR/XR hip RT 2-3V wo/w pel* [id number] IMPRESSION: 1. No hip fracture. 2. Status post RIGHT hip arthroplasty with no complication.
[2019-12-20 15:10] LABS: Basophils % 0.3 %; Eosinophils % 0.1 %; Hematocrit 43.6 % (37.0-47.0); Hemoglobin 14.1 g/dL (11.5-15.3); Lymphocytes # 1.5 10^3/uL (0.8-4.8); Lymphocytes % 21.3 %; Mean Corpuscular HGB Conc 32.3 g/dL (30.0-36.0); Mean Corpuscular Hemoglobin 29.2 pg (28.0-34.0); Mean Corpuscular Volume 90.3 fL (81-99); Mean Platelet Volume 8.4 fL (7.4-10.4); Monocytes # 0.6 10^3/uL (0.2-0.9); Monocytes % 7.8 %; Neutrophils % 70.2 %; Nucleated Red Blood Cells % 0 %; Platelet Count 196 10^3/cmm (130-400); Red Blood Count 4.83 10^6/uL (4.1-5.3); Red Cell Distribution Width 13.3 % (12.1-15.1); White Blood Count 7.2 10^3/uL (4.0-10.0)
[2019-12-20 15:22] LABS: Alanine Aminotransferase 6 U/L (0-33); Alkaline Phosphatase 69 IU/L (35-105); Anion Gap 16.3 (5-19); Aspartate Amino Transferase 14 U/L (0-32); Blood Urea Nitrogen 12 mg/dL (8-23); Calcium 9.5 mg/dL (8.5-10.5); Carbon Dioxide 23 mmol/L (22-29); Chloride 103 mmol/L (98-107); Globulin 2.6 g/dL (1.3-4.6); Glucose 118 mg/dL (74-106); Potassium 4.3 mmol/L (3.5-5.1); Sodium 138 mmol/L (136-145); Total Bilirubin 0.6 mg/dL (0.15-1.2); Total Protein 6.6 g/dL (6.6-8.7)
[2019-12-20 15:23] LABS: Lactic Sepsis W/Reflex 1.5 mmol/L (0.5-2.2)
[2019-12-20 16:29] LABS: Troponin(5th) Baseline 12 ng/mL (0-10)
[2019-12-20 17:40] LABS: Troponin 5 2HR 11.77 ng/mL (0-10); Troponin 5 2HR Delta -0.23 ABS# (0-10)
[2019-12-20 17:40] LABS: Alcohol Level < 10 mg/dL (0-10)
[2019-12-20 17:50] LABS: Ammonia 23 umol/L (11-51)
--- NOTE | 2019-12-20 18:07 | ECG_ITS ---
Measurements Intervals [place] Rate: 74 P: 85 TX: 184 QRS: 59 QRSD: 88 T: 61 QT: 395 QTc: 441 SINUS RHYTHM Compared to ECG 05/28/2019 13:55:38 No significant changes Electronically Signed On 12-21-2019 18:35:51 ELECTRICAL LOGGING ENGINEER by Jayshree Hendrickson M.D. [id number]
--- NOTE | 2019-12-20 18:22 | PM.HP ---
Providers/Chief Complaint Chief Complaint: FALL History of Present Illness Comfort Novak is a 74 year old female with history of hypertension, COPD, hypothyroidism, dementia is being admitted for assessment management after a suspected CVA earlier today. Per report given by ER physician her last known well is not clear. This morning she had woken up having some trouble getting up around 8 AM, subsequently sustaining 2 falls, with persistent weakness on the right side, lower and upper extremity, with her leg being worse, having difficulty lifting it off the bed. Stroke code was called. She was assessed by head CT which showed old lacunar CVA in basal ganglia, without other acute findings. She was not found a candidate for TPA or other assessment by the stroke team. She is being admitted for post CVA management, and assessment of risk factors. She is an extremely poor historian. She is only able to tell me that her right leg is weak, stating that she has had this issue for several weeks, but it is significantly worse this morning. She is also having trouble lifting her right arm, although does not appear to provide this history until she is asked to during examination. She tells me she takes some medications for high blood pressure, but does not remember what they are. She confirms she says that she has COPD, and that she may take some inhaler sometimes, however, does not have them currently with her. She does confirm that she has memory issues. She knows she is in the hospital. She does not remember the year. She seems not to remember that she has had a total hip arthroplasty. I attempted to reach her who is left the ER by phone, however, there was no answer. We do not have a current medication list for her, on review of external medication history she does not appear to have anything for blood pressure, COPD, or her thyroid. Review of Systems Narrative: Review of systems obtained only from patient, has no family are around, however, I suspect that she has quite significant issues with her memory. Const: Denies: fever, chills, body aches or malaise Eyes: Denies: change in vision or eye redness ENMT: Denies: throat pain, oral sores/lesions or ear pain Card: Denies: chest pain, edema, pre-syncope or shortness of breath on exertion Resp: Denies: shortness of breath, productive cough, change in phlegm color or coughing up blood GI: Denies: abdominal pain, nausea, vomiting, diarrhea, constipation, blood in stool or black tarry stool : Denies: flank pain, urinary frequency or blood in urine Musc: Denies: back pain, joint swelling or redness Skin/Breast: Denies: rash, sores or new lesion Neuro: Reports: weakness in extremities, difficulty walking and frequent falls; Denies: headache, numbness in extremities, dizziness, confusion or seizure-like activity Endo: Denies: excessive urination or excessive thirst Dani/Lymph: Denies: easy bleeding or purpura All/Imm: Denies: hives, throat swelling or tongue swelling Medications/Allergies Allergies Allergy/AdvReac Type Severity Reaction Status Date / Time Penicillins Allergy ALGY-Swell Verified 12/20/19 18:33 Lip/Tongue/Throat Additional Medication Information Additional Medication Information: Home medications are unknown. Will need to be reconciled. PFSH Acute PFSH: Statuses (acute, chronic, etc) shown below reflect problem list status as previously entered and may not be historically accurate Medical History (Updated 12/20/19 @ 18:58 by Douglas Charles MD) COPD (chronic obstructive pulmonary disease) (Acute) Dementia (Acute) HTN (hypertension) (Acute) Hypothyroidism (Acute) Surgical History Hx of section (Acute) Hx of tubal ligation (Acute) Social History Smoking and tobacco status: former smoker Quit status (tobacco): has quit using tobacco Year quit tobacco: She reports quit 22 years ago, although this is not confirmed. Alcohol intake: unknown Substance/Drug Use: unknown Household members: spouse Marital status: Vitals/I&O/Wt Last Vital Signs Pulse 68 12/20/19 14:39 Resp 18 12/20/19 14:39 BP 134/99 12/20/19 14:39 Pulse Ox 97 12/20/19 14:39 Weight last 48 hrs Weight 76.657 kg Physical Exam Const: COMMON NORMALS: no apparent distress; negative for oriented x3 EXAM LIMITATIONS: altered mental status and physical limitations NUTRITIONAL APPEARANCE: overweight ORIENTATION/CONSCIOUSNESS: Yes awake OTHER: Conversant. With tangential thought process. HENMT: COMMON NORMALS: oropharynx normal Neck/C-Spine: COMMON NORMALS: no JVD Resp: COMMON NORMALS: normal respiratory effort and clear to auscultation bilaterally AUSCULTATION: clear to auscultation bilaterally Cardio: COMMON NORMALS: no JVD, regular rhythm, S1 normal heart sound, S2 normal heart sound and no murmurs RHYTHM: regular rhythm HEART SOUNDS: S1 normal and S2 normal GI: COMMON NORMALS: normal to inspection, nondistended, normoactive bowel sounds, soft to palpation and non-tender PALPATION: Yes soft Extremity: COMMON NORMALS: no joint enlargement and no pedal edema Neuro: COMMON NORMALS: negative for oriented x3 SENSORIUM/ORIENTATION: Yes alert, Yes oriented to person, Yes oriented to place and No oriented to time MENINGEAL SIGNS: Yes no meningeal signs COORDINATION/BALANCE: [id number] test normal OTHER: Significant weakness of right lower extremity, 3-/5, less weakness and right upper extremity, 4/5, movement appears to be limited by pain in her right shoulder. Babinski positive on the right. There is minimal right side facial droop. Minimal if any dysarthria, although per report from ER physician this is chronic per . She is keenly alert, responsive, following commands very well. No issues with tracking. Visual otto full to confrontation. No ataxia. Sensation is symmetrical and intact. No a aphasia, although appears to have fairly advanced dementia. No visual or sensory neglect. Skin: COMMON NORMALS: no rashes or lesions noted GENERAL SKIN EXAM: no rashes or lesions noted Data : 12/20/19 15:02 12/20/19 15:02 A&P Assessment and plan (1) Acute CVA (cerebrovascular accident): With right-sided weakness, minimal if any facial droop. Some minimal dysarthria, although this is reported chronic by ER physician per discussion with her . Appears all symptoms noticed sometime this morning. EMS notified several times about falls. Last known well is unknown, likely last night. No bleeding on CT of the head. Old lacunar infarct of right basal ganglia. Not deemed candidate for TPA or other intervention on stroke code assessment. We will start her on aspirin, atorvastatin. Maintain permissive hypertension. We will monitor her in the hospital. Monitor on telemetry. Assess A1c. Assess carotid Doppler, echocardiogram. We will need to reconcile her medications, as she says she may be taking something for her blood pressure. We will request for PT, OT, ST. For now n.p.o. until can be seen by ST due to facial droop. Due to underlying dementia, multiple falls today will request one-to-one sitter. I am not sure what her baseline mental status is like. With multiple falls today, will assess for causes that may be responsible for additional encephalopathy on top of chronic dementia. Will assess TSH, check UA, chest x-ray. Vitamin B12, folic acid. Status: Acute Code(s): I63.9 - Cerebral infarction, unspecified (2) Recurrent falls: She is complaining of pain in her right hip. This was assessed, without finding of any issues with prior hardware of right STEVE. Will request for right shoulder x-ray. PT, OT evaluation. We will request for discharge planning assessment. Status: Acute Code(s): R29.6 - Repeated falls Additional A&P Information Reported HTN Reported COPD Reported hypothyroidism Reported dementia Attestations Medical Necessity Statement*: Admission of over 2 midnights is going to be needed for assessment management of acute CVA. Coding Level of Care Code Acute Sterile Processing Manager for Naresh More Diagnoses Acute CVA (cerebrovascular accident) I63.9 Recurrent falls R29.6
--- NOTE | 2019-12-20 18:29 | PC.NURSE ---
Patient received from vertical flow room. Report received by this nurse from ADRIANA Urrutia. Per reports patient was noted to have some right facial droop after arriving. Per reports patient fell twice this morning on her right leg. Second nurse evaluated patient and scored NIH of an 8 at this time. Physician evaluated shortly after with improvements and score of 4. Patient has periods of confusion noted with very aggressive comments made towards each staff member as they enter and exit the room. Patient also seems intermittently agitated about being at the hospital. Will continue to monitor.
--- NOTE | 2019-12-20 18:32 | PC.NURSE ---
Patient yelling at her at this time, stating to get out. Patient expresses anger in regards to him agreeing to her staying for observation. Patient forgets at this time that she had also previously agreed to stay when both the nurse and provider were present and discussing her current situation and options. Pt seems to calm minimally after this information and her leaving.
[2019-12-20 20:13] VITALS: BP 172/93; PULSE 73; RESP 18; O2SAT 97
[2019-12-20] MEDS: aspirin 81 mg Chew Tablet 162 MG PO (20:17)
[2019-12-20 21:09] VITALS: BP 143/89; PULSE 88; RESP 18; O2SAT 96
[2019-12-20 21:45] VITALS: BP 152/73; PULSE 71; RESP 22; TEMP 36.8; O2SAT 95
--- NOTE | 2019-12-20 21:45 | XR_ITS ---
WS: [id number] CHEST XRAY TECHNIQUE: Portable chest. CLINICAL INFORMATION: [facility] COMPARISON: [id number] FINDINGS: Heart: Normal cardiac silhouette. Aortic calcification. Lungs: Chronic emphysematous changes. No acute pulmonary infiltrates. No consolidation or pleural flu id. Bones: Normal visualized bony structures. XR/XR chest 1V portable [id number] IMPRESSION: No acute chest findings
--- NOTE | 2019-12-20 21:45 | XR_ITS ---
WS: [id number] SHOULDER RIGHT TECHNIQUE: 3 views of the right shoulder CLINICAL INFORMATION: fall COMPARISON: None. FINDINGS: Mild degenerative arthritis AC joint. Distal clavicle is normal. Narrowing of the subacromial space c onsistent with rotator cuff arthropathy. Normal glenoid. Normal right ribs. XR/XR shoulder RT min 2V* [id number] IMPRESSION: 1. Mild degenerative arthritis AC joint. 2. Rotator cuff arthropathy with loss of the subacromial space. 3. No acute fractures.
--- NOTE | 2019-12-20 22:07 | ECG_ITS ---
Measurements Intervals [place] Rate: 77 P: 72 [place]: 181 QRS: 49 QRSD: 86 T: 56 QT: 396 QTc: 448 SINUS RHYTHM Compared to ECG 05/28/2019 13:55:38 No significant changes Electronically Signed On 12-21-2019 18:35:57 RIVET HAMMER MACHINE OPERATOR by Jayshree Hendrickson M.D. [id number]
[2019-12-20 22:28] VITALS: BP 153/81; PULSE 76; RESP 20; TEMP 36.7; O2SAT 95
[2019-12-20 22:41] LABS: Thyroid Stimulating Hormone 3.76 uIU/mL (0.27-4.20)
[2019-12-20 22:44] LABS: Estmated Average Glucose 111; Hemoglobin A1C 5.5 % (4.0-6.0)
[2019-12-20 22:52] LABS: Troponin 5 6HR 12.81 ng/L (0-10); Troponin 5 6HR Delta 0.81 ng/L (0-12)
[2019-12-20] MEDS: D5-NS 0.45% + KCL 20 mEq 20 MEQ/1,000 ML BAG 100 MEQ IV (23:21)
[2019-12-20] MEDS: atorvastatin 40 mg Tablet PO (23:23)
[2019-12-20] MEDS: heparin 5,000 unit/mL INJ 1 mL 5000 UNIT SUBCUT (23:25)
[2019-12-20] MEDS: pneumococcal (23 valent) SDV 0.5 mL IM (23:32)
[2019-12-20 23:57] VITALS: BP 130/80; PULSE 65; RESP 16; TEMP 36.8; O2SAT 96
[2019-12-21] VITALS (7 sets, daily range): BP systolic 127–164; BP diastolic 69–87; PULSE 60–72; RESP 18–20; TEMP 36.6–36.9; O2SAT 93–97
[2019-12-21 01:02] LABS: Bilirubin Urine Neg (NEGATIVE); Blood Urine Trace (Negative); Glucose Urine UA Norm (Normal); Ketones Urine Negative (Negative); Nitrate Urine Negative (Negative); Protein Urine Neg (Negative); Urine Appearance Clear (CLEAR); Urine Color Yellow (Yellow); Urobilinogen Urine Norm (Negative); pH Urine 8 (5-7)
[2019-12-21 01:03] LABS: Leukocyte Esterase Urine 2+ (Negative)
[2019-12-21 01:05] LABS: Add Urine Culture? Yes; Bacteria Urine 2+; Squamous Epithelial Cell Urine 0-4 (0-5); WBC Urine 80-100 /hpf (0-5)
[2019-12-21 01:16] LABS: Folate Level 2.1 ng/mL (4.8-37.3)
[2019-12-21 01:17] LABS: Vitamin B12 196 pg/mL (232-1245)
[2019-12-21 01:22] LABS: Amphetamines Screen Urine Negative (Negative); Barbiturates Screen Urine Negative (Negative); Benzodiazepines Screen Urine Negative (Negative); Cocaine Screen Urine Negative (Negative); Opiate Screen Urine Negative (Negative); PCP Screen Urine Negative (Negative); THC Screen Urine Negative (Negative)
[2019-12-21 04:08] LABS: Basophils % 0.3 %; Eosinophils # 0.1 10^3/uL (0.0-0.8); Eosinophils % 0.8 %; Hematocrit 37.9 % (37.0-47.0); Hemoglobin 12.8 g/dL (11.5-15.3); Lymphocytes # 2.5 10^3/uL (0.8-4.8); Lymphocytes % 41.1 %; Mean Corpuscular HGB Conc 33.8 g/dL (30.0-36.0); Mean Corpuscular Hemoglobin 29.9 pg (28.0-34.0); Mean Corpuscular Volume 88.6 fL (81-99); Mean Platelet Volume 8.6 fL (7.4-10.4); Monocytes # 0.5 10^3/uL (0.2-0.9); Monocytes % 7.6 %; Neutrophils % 49.9 %; Nucleated Red Blood Cells % 0 %; Platelet Count 177 10^3/cmm (130-400); Red Blood Count 4.28 10^6/uL (4.1-5.3); Red Cell Distribution Width 13.3 % (12.1-15.1)
[2019-12-21 04:23] LABS: Alanine Aminotransferase 6 U/L (0-33); Albumin Level 3.1 g/dL (3.5-5.2); Alkaline Phosphatase 57 IU/L (35-105); Anion Gap 13.8 (5-19); Aspartate Amino Transferase 14 U/L (0-32); Blood Urea Nitrogen 10 mg/dL (8-23); Calcium 8.7 mg/dL (8.5-10.5); Carbon Dioxide 24 mmol/L (22-29); Chloride 104 mmol/L (98-107); Globulin 2.4 g/dL (1.3-4.6); Glucose 113 mg/dL (74-106); Potassium 3.8 mmol/L (3.5-5.1); Sodium 138 mmol/L (136-145); Total Bilirubin 0.6 mg/dL (0.15-1.2); Total Protein 5.5 g/dL (6.6-8.7)
[2019-12-21] MEDS: heparin 5,000 unit/mL INJ 1 mL 5000 UNIT SUBCUT ×3 (06:16→21:10)
[2019-12-21] MEDS: aspirin 81 mg Chew Tablet 162 MG PO (08:41)
[2019-12-21] MEDS: folic acid 1 mg Tablet PO (08:43)
[2019-12-21] MEDS: cyanocobalamin 1,000 mcg Tablet 1000 MCG PO (08:43)
[2019-12-21] MEDS: D5-NS 0.45% + KCL 20 mEq 20 MEQ/1,000 ML BAG 100 MEQ IV ×2 (09:32→21:10)
--- NOTE | 2019-12-21 12:18 | PC.CHAP ---
Pastoral Care Encounter/Spiritual Assessment Type of Contact [] Declined stuffed casing tier visit [] Patient/Family/Request visit [] Outpatient visit [] Follow-up visit [] Physician referral [] Code/Alert [x] Routine visit [] Staff referral [] Actively dying [] Patient sleeping [] Family support [] [] Out of room [] Palliative care [] [] Receiving care in room [] Pre-surgical visit [] Trauma [] Long length of stay [] ICU visit [] Other: Relational/Emotional Strength [x] Patient feels connected with others/family/visitors/staff [] Distress [] Loneliness/isolation [] Abandonment Spirituality of Patient [x] Person of Shanna [x] Attends Druze of their Shanna [] Believes in Prayer [] Reads Bible or Mormonism materials [] There are Spiritual issues to be addressed Sagger Maker Interventions [x] Prayer [x] Active listening [x] Non-anxious presence [x] Spiritual/emotional support [] Crisis/trauma care [] Spiritual counseling [] Bereavement support [] Provided bereavement packet [] Provided Bible/devotional materials [] Provided toy/stuffed animal, coloring book to patient or family member [x] Completed spiritual assessment [] Provided Communion [] Anointing/[place] [] Salvation [] Other: Impact on Illness or Injury [] Angry [x] Fearful [x] Anxious [x] Often cries [] Exhaustion [] Unable to work [] Unable to attend sikh [] Unable to walk/stand [] Unable to read [] Unable to drive [] Unable to eat/drink [] Unable to sleep [] Unable to be with family [] Other: Summary patient needs some perswonal loving Time spent with patient 15 min
--- NOTE | 2019-12-21 18:07 | PM.PN ---
Subjective Subjective: Interval history: Denies any change in her symptoms this morning. Still can barely lift her right leg off the bed. Right arm also still weak. Having some pain in the right shoulder. Asking when she may return home, but agreeable to stay for assessment of urinary tract infection and stroke. Vitals/I&O/Wt Last Vital Signs Temp 98.2 F 12/21/19 16:00 Pulse 64 12/21/19 16:00 Resp 20 H 12/21/19 16:00 BP 160/82 12/21/19 16:00 Pulse Ox 97 12/21/19 16:00 12/21/19 12/21/19 12/21/19 06:59 14:59 22:59 Intake Total 125 / 125 1000 / 1000 Output Total 400 / 400 Balance -275 / -275 1000 / 1000 Weight last 48 hrs Weight 77.156 kg Weight 76.657 kg Physical Exam Const: COMMON NORMALS: no apparent distress and alert; negative for oriented x3 EXAM LIMITATIONS: altered mental status and physical limitations NUTRITIONAL APPEARANCE: overweight ORIENTATION/CONSCIOUSNESS: Yes awake, Yes oriented to person and Yes oriented to place; not oriented to time OTHER: Conversant. With tangential thought process. HENMT: COMMON NORMALS: oropharynx normal Neck/C-Spine: COMMON NORMALS: no meningeal signs and no JVD Resp: COMMON NORMALS: normal respiratory effort and clear to auscultation bilaterally AUSCULTATION: clear to auscultation bilaterally Cardio: COMMON NORMALS: no JVD, regular rhythm, S1 normal heart sound, S2 normal heart sound and no murmurs RHYTHM: regular rhythm HEART SOUNDS: S1 normal and S2 normal GI: COMMON NORMALS: normal to inspection, nondistended, normoactive bowel sounds, soft to palpation and non-tender PALPATION: Yes soft Extremity: COMMON NORMALS: no joint enlargement and no pedal edema Neuro: COMMON NORMALS: negative for oriented x3 SENSORIUM/ORIENTATION: Yes alert, Yes oriented to person, Yes oriented to place and No oriented to time MENINGEAL SIGNS: Yes no meningeal signs COORDINATION/BALANCE: [id number] test normal COORDINATION: [id number] test normal OTHER: Today no changes in neurological exam, with significant weakness of right lower extremity, 3-/5, less weakness and right upper extremity, 4/5, movement appears to be limited by pain in her right shoulder. Babinski positive on the right. There is minimal right side facial droop. Minimal if any dysarthria, although per report from ER physician this is chronic per . She is keenly alert, responsive, following commands very well. No issues with tracking. Visual otto full to confrontation. No ataxia. Sensation is symmetrical and intact. No aphasia, although appears to have fairly advanced dementia. No visual or sensory neglect. Skin: COMMON NORMALS: no rashes or lesions noted GENERAL SKIN EXAM: no rashes or lesions noted Urinary Catheter Management^: Villanueva: Cath Placed During This Visit: no Data : 12/21/19 03:57 12/21/19 03:57 A&P Assessment and plan (1) UTI (urinary tract infection): Presented with symptoms consistent with CVA, but also noted to have UTI on urine assessment. With history of ESBL E. coli back in January 2019. She reports allergy to penicillin with nonspecific swelling over 30 years ago. For now start her on Primaxin. Adjust according to urine culture results. Status: Acute Code(s): N39.0 - Urinary tract infection, site not specified (2) Acute CVA (cerebrovascular accident): With right-sided weakness, minimal if any facial droop. Some minimal dysarthria, although this is reported chronic by ER physician per discussion with her . No changes in symptoms today. Started on aspirin, statin. Carotid Doppler without significant stenosis. Echocardiogram pending. A1c normal. Does appear to have concomitant UTI, B12 and folic acid deficiency. She is at elevated risk of falling. It appears her son may be able to stay with her for some time, although she would benefit from rehabilitation at SNF. Discharge planning is on board. Continue PT, OT, ST. Maintain fall precautions. Status: Acute Code(s): I63.9 - Cerebral infarction, unspecified (3) Recurrent falls: She is complaining of pain in her right hip. This was assessed, without finding of any issues with prior hardware of right STEVE. PT, OT. Treat UTI, B12, folic acid deficiency. Status: Acute Code(s): R29.6 - Repeated falls Additional A&P Information Right shoulder weakness, pain: Degenerative changes seen on x-ray. No fracture. Reported HTN Reported COPD Reported hypothyroidism Reported dementia Attestations Medical Necessity Statement*: Continue admission for assessment management of CVA, UTI, discharge arrangements. Coding Level of Care Code Acute Finished Carpet Inspector for Chg Fwd Diagnoses UTI (urinary tract infection) N39.0 Acute CVA (cerebrovascular accident) I63.9 Recurrent falls R29.6
--- NOTE | 2019-12-21 20:29 | PC.NURSE ---
Spoke with the son this afternoon and he is requesting a Psych evaluation be done on patient. He also would like patient be discharged to [facility] for ferry terminal agent placement.
[2019-12-21] MEDS: atorvastatin 40 mg Tablet PO (21:13)
[2019-12-21] MEDS: ondansetron 2 mg/ML SDV 2 mL 4 MG IVP (21:29)
--- NOTE | 2019-12-21 21:45 | USCV_ITS ---
Comfort Novak Age: 74 Gender: F : 1945 Exam Date: 12/21/2019 12:10 Ordering Phys: Douglas Charles MD Technologist: Toshia Pozo Exam Location: [facility] [place]ication: CVA BP: 127 / 71 HR: 60 Rhythm: Sinus Technical Quality: Adequate MEASUREMENTS (Male / Female) Normal Values 2D ECHO LV Diastolic Diameter PLAX 2.8 cm 4.2 - 5.9 / 3.9 - 5.3 cm LV Systolic Diameter PLAX 1.7 cm LV Chamber Size 3.6 cm IVS Diastolic Thickness 1.3 cm 0.6 - 1.0 / 0.6 - 0.9 cm IVS Systolic Thickness 1.3 cm LVPW Diastolic Thickness 1.6 cm 0.6 - 1.0 / 0.6 - 0.9 cm LVPW Systolic Thickness 1.6 cm RV Chamber Size 2.5 cm LVOT Diameter 2.0 cm LV Ejection Fraction 2D Teich 72.1 % LV Ejection Fraction MOD 2C 76.3 % LV Ejection Fraction 2C AL 78.2 % LA Diameter 4.0 cm LA Width 2.6 cm LA Height 3.6 cm RA Width 2.3 cm RA Height 4.3 cm Aorta at Sinotubular Diameter 3.3 cm M-MODE LV Diastolic Diameter MM 3.5 cm 4.2 - 5.9 / 3.9 - 5.3 cm LV Systolic Diameter MM 1.5 cm LV Ejection Fraction MM Teich 89.0 % IVS Diastolic Thickness MM 0.9 cm 0.6 - 1.0 / 0.6 - 0.9 cm IVS Systolic Thickness MM 1.3 cm LVPW Diastolic Thickness MM 0.9 cm 0.6 - 1.0 / 0.6 - 0.9 cm LVPW Systolic Thickness MM 1.1 cm Aortic Annulus Diameter 2.9 cm LA Ao Ratio MM 1.4 MV E Point Septal Separation 0.6 cm DOPPLER AV Peak Velocity 119.0 cm/s LVOT Peak Velocity 92.0 cm/s AV Area Cont Eq vti 2.2 cm squared AV Area Cont Eq pk 2.5 cm squared MV Area PHT 3.4 cm squared Mitral E to A Ratio 1.1 MV E' Velocity 11.0 cm/s Mitral E to MV E' Ratio 10.9 Mitral E to LV E' Lateral Ratio 10.1 Mitral E to LV E' Septal Ratio 11.9 TR Peak Velocity 141.0 cm/s TR Peak Gradient 8.0 mmHg TV Peak E Velocity 70.0 cm/s Right Atrial Pressure 3.0 mmHg Pulmonary Artery Systolic Pressu 11.0 mmHg PV Peak Velocity 63.0 cm/s RV Acceleration Time 0.2 s RV Ejection Time 0.4 s RV AcT/ET 0.5 FINDINGS Left Ventricle Normal left ventricular cavity size. Normal left ventricular systolic function. No regional wall motion abnormalities. Left ventricular ejection fraction is estimated at 60 %. Grade II/IV diastolic dysfunction, moderately elevated filling pressures. Right Ventricle The right ventricle is normal in size and function. Right Atrium The right atrium is normal in size. Left Atrium The left atrium is normal in size. Mitral Valve Structurally normal mitral valve without significant stenosis or prolapse. There is no mitral regurgitation. Aortic Valve Structurally normal aortic valve without significant sclerosis or stenosis. There is no aortic regurgitation. Tricuspid Valve Structurally normal tricuspid valve without significant stenosis or regurgitation. Pulmonary artery systolic pressure is normal. Pulmonic Valve Structurally normal pulmonic valve without significant stenosis. There is no pulmonic regurgitation. Pericardium Normal pericardium without effusion. Aorta Normal ascending aorta dimension. CONCLUSIONS 1-Normal left ventricular cavity size. Normal left ventricular systolic function. No regional wall motion abnormalities. Left ventricular ejection fraction is estimated at 60 %. Grade II/IV diastolic dysfunction, moderately elevated filling pressures. 2-There is no pericardial effusion. 3-No significant valve abnormalities. 4-Pulmonary artery systolic pressure is within normal limits. 5-Right atrial pressure is around 5 mm of mercury. 6-No significant change since the prior echocardiogram study of 06/07/2015. Jayshree Hendrickson MD (Electronically Signed) Final Date: 21 December 2019 18:11 S
--- NOTE | 2019-12-21 21:45 | USCV_ITS ---
Comfort Novak Age: 74 Gender: F : 1945 Exam Date: 12/21/2019 12:21 Ordering Phys: Douglas Charles MD Technologist: Toshia Pozo Exam Location: [facility] – [place] Indication: CVA Risk Factors: Previous Vascular Surgery: Right Brachial BP: / Left Brachial BP: / Right Left Velocity (cm/s) Spectral Plaque Velocity (cm/s) Spectral Plaque Syst/Diast Broadening Syst/Diast Broadening 61.70/ 19.80 Prox CCA 58.00 / 16.90 68.40/ 22.10 Mid CCA 45.10 / 11.30 49.60/ 19.80 Distal CCA 47.60 / 15.30 56.40/ 22.60 Prox ICA 56.40 / 19.30 58.90/ 21.00 Mid ICA 45.80 / 15.00 46.80/ 16.90 Distal ICA 36.90 / 13.70 79.40 ECA 71.00 0.86 ICA/CCA 1.25 Antegrade Vertebral Antegrade 62.90/ 9.70 cm/s 41.80/ 6.60 cm/s Tri Subclavian Tri 72.60 62.70 CONCLUSIONS Right ICA stenosis <50%. Mild atheromatous plaque right carotid bulb/ICA. Left ICA stenosis <50%. Mild atheromatous plaque left carotid bulb/ICA. Normal antegrade Doppler flow noted in the right vertebral artery. Normal antegrade Doppler flow noted in the left vertebral artery. Jayesh Mittal MD (Electronically Signed) Final Date: 21 December 2019 13:46 S
[2019-12-22 03:51] VITALS: BP 165/81; PULSE 79; RESP 18; TEMP 36.9; O2SAT 97
[2019-12-22] MEDS: heparin 5,000 unit/mL INJ 1 mL 5000 UNIT SUBCUT ×3 (05:32→21:30)
[2019-12-22 07:02] LABS: Basophils % 0.5 %; Eosinophils # 0.1 10^3/uL (0.0-0.8); Eosinophils % 0.8 %; Hematocrit 40.4 % (37.0-47.0); Hemoglobin 13.5 g/dL (11.5-15.3); Lymphocytes # 2.1 10^3/uL (0.8-4.8); Lymphocytes % 35.4 %; Mean Corpuscular HGB Conc 33.4 g/dL (30.0-36.0); Mean Corpuscular Hemoglobin 28.7 pg (28.0-34.0); Mean Corpuscular Volume 85.8 fL (81-99); Mean Platelet Volume 9.1 fL (7.4-10.4); Monocytes # 0.6 10^3/uL (0.2-0.9); Monocytes % 9.5 %; Neutrophils # 3.2 10^3/uL (1.8-7.7); Neutrophils % 53.6 %; Nucleated Red Blood Cells % 0 %; Platelet Count 188 10^3/cmm (130-400); Red Blood Count 4.71 10^6/uL (4.1-5.3); Red Cell Distribution Width 13.1 % (12.1-15.1)
[2019-12-22 07:18] LABS: Anion Gap 17.4 (5-19); Blood Urea Nitrogen 5 mg/dL (8-23); Calcium 8.7 mg/dL (8.5-10.5); Carbon Dioxide 20 mmol/L (22-29); Chloride 105 mmol/L (98-107); Creatinine Clr Calc Pharmacy 58.9953; Glucose 102 mg/dL (74-106); Osmolality Calculated 282 mOsm/kg (285-295); Potassium 4.4 mmol/L (3.5-5.1); Sodium 138 mmol/L (136-145)
[2019-12-22 07:47] VITALS: BP 176/76; PULSE 68; RESP 18; TEMP 36.9; O2SAT 94
[2019-12-22] MEDS: D5-NS 0.45% + KCL 20 mEq 20 MEQ/1,000 ML BAG 100 MEQ IV (08:29)
[2019-12-22] MEDS: cyanocobalamin 1,000 mcg Tablet 1000 MCG PO (08:29)
[2019-12-22] MEDS: aspirin 81 mg Chew Tablet 162 MG PO (08:29)
[2019-12-22] MEDS: folic acid 1 mg Tablet PO (08:29)
--- NOTE | 2019-12-22 08:33 | PC.NURSE ---
Pt assisted to sitting position for breakfast. Alert and oriented to self only. Pleasant and cooperative with assessment
[2019-12-22 12:00] VITALS: BP 152/79; PULSE 79; RESP 18; TEMP 36.7; O2SAT 96
--- NOTE | 2019-12-22 13:10 | PC.CHAP ---
Pastoral Care Encounter/Spiritual Assessment Type of Contact [] Declined felling machine operator visit [] Patient/Family/Request visit [] Outpatient visit [] Follow-up visit [] Physician referral [] Code/Alert [x] Routine visit [] Staff referral [] Actively dying [] Patient sleeping [] Family support [] [] Out of room [] Palliative care [] [x] Receiving care in room [] Pre-surgical visit [] Trauma [] Long length of stay [] ICU visit [] Other: Relational/Emotional Strength [] Patient feels connected with others/family/visitors/staff [] Distress [] Loneliness/isolation [] Abandonment Spirituality of Patient [] Person of Shanna [] Attends Jain of their Shanna [] Believes in Prayer [] Reads Bible or Mandaeism materials [] There are Spiritual issues to be addressed Halal Butcher Interventions [] Prayer [] Active listening [] Non-anxious presence [] Spiritual/emotional support [] Crisis/trauma care [] Spiritual counseling [] Bereavement support [] Provided bereavement packet [] Provided Bible/devotional materials [] Provided toy/stuffed animal, coloring book to patient or family member [] Provided Communion [] Anointing/[place] [] Salvation [] Completed spiritual assessment [] Other: Impact on Illness or Injury [] Angry [] Fearful [] Anxious [] Often cries [] Exhaustion [] Unable to work [] Unable to attend restorationist [] Unable to walk/stand [] Unable to read [] Unable to drive [] Unable to eat/drink [] Unable to sleep [] Unable to be with family [] Patient intubated [] Other: Summary Patient was busy with staff. Time spent with patient
--- NOTE | 2019-12-22 15:56 | PM.PN ---
Subjective Subjective: Interval history: History and physical as well as progress notes reviewed. Discussed with patient as well as son. Overall doing okay. No specific complaints today. It is obvious from my interview that her memory is severely impaired, consistent with moderate to severe dementia Medications: Reviewed: Yes Vitals/I&O/Wt Last Vital Signs Temp 98.0 F 12/22/19 12:00 Pulse 79 12/22/19 12:00 Resp 18 12/22/19 12:00 BP 152/79 12/22/19 12:00 Pulse Ox 96 12/22/19 12:00 12/22/19 12/22/19 12/22/19 06:59 14:59 22:59 Intake Total 100 / 2780 1480 / 1480 Output Total 2500 / 4500 700 / 700 Balance -2400 / -1720 780 / 780 Weight last 48 hrs Weight 77.564 kg Weight 77.156 kg Physical Exam Narrative: EXAM NARRATIVE: General exam no apparent distress Cardiovascular regular in rhythm without murmur Lungs clear Abdomen is soft, positive bowel sounds Extremities no cyanosis clubbing or edema Neurologic: Significantly improved strength from previous on right side. Memory is significantly impaired, short-term. Urinary Catheter Management^: Villanueva: Cath Placed During This Visit: no Data : 12/22/19 06:05 12/22/19 06:05 Micro: Microbiology 12/21/19 00:46 Urine Culture - Preliminary Urine,Clean Catch A&P Assessment and plan (1) UTI (urinary tract infection): Currently on Primaxin. Previous history of ESBL. Urine culture preliminary negative. Status: Acute Code(s): N39.0 - Urinary tract infection, site not specified (2) Acute CVA (cerebrovascular accident): Presented with right-sided weakness. Symptoms improved today. Placed on statin, aspirin. Carotid Doppler with no surgical stenosis, echocardiogram no severe valvular dysfunction or thrombus. Status: Acute Code(s): I63.9 - Cerebral infarction, unspecified (3) Recurrent falls: She is complaining of pain in her right hip. This was assessed, without finding of any issues with prior hardware of right STEVE. PT, OT. Treat UTI, B12, folic acid deficiency. Status: Acute Code(s): R29.6 - Repeated falls Additional A&P Information UTI, currently on Primaxin B12 deficiency and folic acid deficiency, placed on supplementation Right shoulder weakness, pain. Son reports previous right rotator cuff tear Reported HTN, noncompliant with medications Reported COPD, stable currently Reported hypothyroidism, TSH normal Reported dementia, significant short-term memory deficit Attestations Medical Necessity Statement*: Needs continued hospital stay, for close monitoring secondary to CVA, IV antibiotics for UTI pending final culture results Coding Level of Care Code Acute Chinese Language Professor for Chg Fwd Diagnoses UTI (urinary tract infection) N39.0 Acute CVA (cerebrovascular accident) I63.9 Recurrent falls R29.6
[2019-12-22 16:00] VITALS: BP 144/66; PULSE 81; RESP 18; TEMP 36.4; O2SAT 96
--- NOTE | 2019-12-22 16:02 | PC.NURSE ---
Pt resting in bed with eyes closed. 0 s/s of distress noted. Bed in low, locked position, side rails up x2, bed alarm on, and call light in reach.
[2019-12-22 19:53] VITALS: BP 178/110; PULSE 77; RESP 18; TEMP 36.7; O2SAT 92
[2019-12-22 19:54] VITALS: BP 168/84
[2019-12-22] MEDS: atorvastatin 40 mg Tablet PO (21:30)
[2019-12-23] VITALS: BP 167/87; PULSE 63; RESP 19; TEMP 36.7; O2SAT 94
[2019-12-23 03:53] VITALS: BP 150/86; PULSE 67; RESP 18; TEMP 36.6; O2SAT 93
[2019-12-23] MEDS: heparin 5,000 unit/mL INJ 1 mL 5000 UNIT SUBCUT ×3 (06:03→21:33)
[2019-12-23 08:00] VITALS: BP 162/64; PULSE 76; RESP 18; TEMP 36.4; O2SAT 94
[2019-12-23] MEDS: cyanocobalamin 1,000 mcg Tablet 1000 MCG PO (09:49)
[2019-12-23] MEDS: folic acid 1 mg Tablet PO (09:49)
[2019-12-23] MEDS: aspirin 81 mg Chew Tablet 162 MG PO (09:49)
[2019-12-23] MEDS: lisinopril 5 mg Tablet PO (10:05)
[2019-12-23 12:00] VITALS: BP 146/78; PULSE 82; RESP 18; TEMP 36.9; O2SAT 94
--- NOTE | 2019-12-23 14:26 | PM.PN ---
Subjective Subjective: Interval history: Comfort reports she is doing well. No specific complaints. We discussed rehabilitation again. Medications: Reviewed: Yes Vitals/I&O/Wt Last Vital Signs Temp 98.5 F 12/23/19 12:00 Pulse 82 12/23/19 12:00 Resp 18 12/23/19 12:00 BP 146/78 12/23/19 12:00 Pulse Ox 94 12/23/19 12:00 12/22/19 12/23/19 12/23/19 22:59 06:59 14:59 Intake Total 590 / 2170 480 / 480 Output Total 1000 / 1700 1000 / 2700 Balance -410 / 470 -1000 / -530 480 / 480 Weight last 48 hrs Weight 77.621 kg Weight 77.564 kg Physical Exam Narrative: EXAM NARRATIVE: General exam no apparent distress Cardiovascular regular in rhythm without murmur Lungs clear Abdomen is soft, positive bowel sounds Extremities no cyanosis clubbing or edema Neurologic: Significantly improved strength from previous on right side. This is unchanged from yesterday. Memory, short-term is impaired but she is verbal and was able to recall some long-term memory items from her past Urinary Catheter Management^: Villanueva: Cath Placed During This Visit: no Data : 12/22/19 06:05 12/22/19 06:05 Micro: Microbiology 12/21/19 00:46 Urine Culture - Final Urine,Clean Catch A&P Assessment and plan (1) UTI (urinary tract infection): Currently on Primaxin. Previous history of ESBL. Urine culture final is negative. Will discontinue Primaxin. Secondary to significant white blood cell count, on discharge will initiate oral antibiotics for short course Status: Acute Code(s): N39.0 - Urinary tract infection, site not specified (2) Acute CVA (cerebrovascular accident): Presented with right-sided weakness. Symptoms improved today. Placed on statin, aspirin. Carotid Doppler with no surgical stenosis, echocardiogram no severe valvular dysfunction or thrombus. Status: Acute Code(s): I63.9 - Cerebral infarction, unspecified (3) Recurrent falls: Continuing physical therapy Status: Acute Code(s): R29.6 - Repeated falls Additional A&P Information UTI, currently on Primaxin B12 deficiency and folic acid deficiency, placed on supplementation Right shoulder weakness, pain. Son reports previous right rotator cuff tear Reported HTN, noncompliant with medications. Will initiate lisinopril today Reported COPD, stable currently Reported hypothyroidism, TSH normal Reported dementia, significant short-term memory deficit Attestations Medical Necessity Statement*: Needs continued hospital stay pending placement to skilled care with rehab secondary to CVA, global weakness, evidence of UTI on urinalysis. Coding Level of Care Code Acute Supervisor Natural [employer] Plant for Chg Fwd Diagnoses UTI (urinary tract infection) N39.0 Acute CVA (cerebrovascular accident) I63.9 Recurrent falls R29.6
[2019-12-23 15:18] VITALS: BP 121/64; PULSE 80; RESP 14; TEMP 36.8; O2SAT 97
[2019-12-23 19:27] VITALS: BP 147/71; PULSE 72; RESP 17; TEMP 37.1; O2SAT 98
[2019-12-23] MEDS: atorvastatin 40 mg Tablet PO (21:33)
[2019-12-24] VITALS: BP 144/68; PULSE 74; RESP 17; TEMP 37.2; O2SAT 94
[2019-12-24 01:22] VITALS: BP 144/89; PULSE 74; RESP 20; TEMP 36.9; O2SAT 95
[2019-12-24 04:00] VITALS: BP 157/83; PULSE 67; RESP 20; TEMP 37.1; O2SAT 96
[2019-12-24] MEDS: heparin 5,000 unit/mL INJ 1 mL 5000 UNIT SUBCUT (05:41)
[2019-12-24 07:36] VITALS: BP 138/84; PULSE 70; RESP 18; TEMP 37.1; O2SAT 93
--- NOTE | 2019-12-24 09:09 | PM.DCS ---
Discharge Providers Date of Admission: 12/21/19 11:38 Date of Discharge: Date of Discharge: December 24, 2019 Attending Provider at Admission: Douglas Charles Attending Provider at Discharge: Mic Pang MD Diagnoses at Discharge Discharge Diagnosis (1) UTI (urinary tract infection): Status: Acute Problem details: Culture ultimately negative. However secondary to significant leukorrhea, she will receive 3 more days of Cipro (2) Acute CVA (cerebrovascular accident): Status: Acute Problem details: Aspirin, statin (3) Recurrent falls: Status: Acute Problem details: PT consult, skilled care Reason for Visit Reason for Visit: Reason For Visit: FALL Hospital Course Discharge Summary: Comfort presented to the hospital with weakness on her right side. She was diagnosed with CVA. Initial CT scan negative for acute changes. Carotid duplex demonstrated no surgical disease. Echocardiogram demonstrated preserved EF, no thrombus. Telemetry demonstrated sinus rhythm. During her course of hospital stay right-sided weakness improved significantly. However, it was thought she could benefit from skilled care. During the course of her hospital stay lisinopril low-dose was added for hypertension after monitoring for 48 hours with permissive hypertension following CVA. She also received IV antibiotics while in the hospital for UTI. Culture ultimately was negative but secondary to significant leukorrhea, unknown if culture was obtained prior to antibiotic treatment Cipro will continue for 3 days. Other medical diagnoses include dementia, moderate to severe and chronic right rotator cuff tear. Physical Exam Narrative: EXAM NARRATIVE: General exam no apparent distress Cardiovascular regular rate and rhythm Lungs clear Abdomen is soft positive bowel sounds Extremities no cyanosis clubbing or edema Urinary Catheter Management^: Villanueva: Cath Placed During This Visit: no Discharge Data Data Completed and Pending: Completed Studies During Hospitalization Category Date Time Status CT head wo con* 7 0450 Urgent Cat Scan 12/20/[address] head wo con* 7 0450 Urgent Cat Scan 12/20/19 14:50 Completed XR chest 1V christo ble [id number] Routine Exams 12/20/19 21:45 Completed XR hip RT 2-3V wo /w pel* [id number] Stat Exams 12/20/19 14:55 Completed XR shoulder RT mi n 2V* [id number] Routin e Exams 12/20/19 21:45 Completed CV carotid duplex BI* [id number] Urgent Ultrasound 12/21/19 21:45 Completed CV echo complete* [id number] Urgent Ultrasound 12/21/19 21:45 Completed Vitals: Last Vital Signs Temp 98.7 F 12/24/19 07:36 Pulse 70 12/24/19 07:36 Resp 18 12/24/19 07:36 BP 138/84 12/24/19 07:36 Pulse Ox 93 12/24/19 07:36 Discharge Plan Discharge Patient Disposition: Xfer SNF Condition: Stable Prescriptions: New aspirin 81 mg Tablet,Chewable 162 mg PO DAILY Qty: 60 RF: 0 lisinopril 5 mg Tablet 5 mg PO DAILY Qty: 30 RF: 0 ciprofloxacin HCl [Cipro] 500 mg tablet 500 mg PO BID Qty: 6 RF: 0 acetaminophen 325 mg Tablet 650 mg PO Q6H PRN (Reason: Mild/Mod Pain Or Temp >/= 101) Qty: 30 RF: 0 folic acid 1 mg Tablet 1 mg PO DAILY Qty: 30 RF: 0 cyanocobalamin (vitamin B-12) 1,000 mcg Tablet 1,000 mcg PO DAILY Qty: 30 RF: 0 atorvastatin 40 mg Tablet 40 mg PO BEDTIME Qty: 30 RF: 0 No Action Unable to Assess RF: 0 Discharge Orders: Discharge Order (Routine); Ordered 12/24/19 Ordered By: Mic Pang Discharge Diet: Cardiac Discharge Activity: Increase activity as tolerated Activity Restrictions/Additional Instructions: Transfer to nursing home facility per family Leave Villanueva in at discharge for patient's transfer, to be removed upon arrival at nursing home facility Discharge Attestations Time Spent in Discharge Care*: greater than 30 min Quality Metrics Clinical Quality Measures During this hospital stay, did patient experience: Stroke Contraindication to Antithrombotic: Antithrombotic prescribed Contraindication to Anticoagulation: Overlap treatment not indicated Contraindication to Statin: Statin prescribed Contraindication to antithrombotic day 2: Antithrombotic given Contraindication to tPA: Treatment not indicated Coding Level of Care Code Acute Procurement Technician for g Fwd Diagnoses UTI (urinary tract infection) N39.0 Acute CVA (cerebrovascular accident) I63.9 Recurrent falls R29.6
[2019-12-24] MEDS: folic acid 1 mg Tablet PO (09:50)
[2019-12-24] MEDS: lisinopril 5 mg Tablet PO (09:50)
[2019-12-24] MEDS: cyanocobalamin 1,000 mcg Tablet 1000 MCG PO (09:50)
[2019-12-24] MEDS: aspirin 81 mg Chew Tablet 162 MG PO (09:50)
[2019-12-24] MEDS: ondansetron 4 MG Tablet PO (10:35)
[2019-12-24 12:38] VITALS: BP 138/84; PULSE 70; RESP 18; TEMP 37.1; O2SAT 93
== END 2019-12-24 10:50 | disposition skilled nursing facility (03) | DRG 65 ==
LOC: ER 16:29 → MEDSURG 19:25
PROVIDERS: Nurse Practitioner Family; Admitting Provider Internal Medicine; Emergency Provider Family Medicine; Visit Provider Internal Medicine
DX: I63.9 Cerebral infarction, unspecified (principal); G81.91 Hemiplegia, unspecified affecting right dominant side; R29.708 NIHSS score 8; Z91.81 History of falling; F03.90 Unspecified dementia, unspecified severity, without behavioral disturbance, psychotic disturbance, mood disturbance, and anxiety; N89.8 Other specified noninflammatory disorders of vagina; I10 Essential (primary) hypertension; J44.9 Chronic obstructive pulmonary disease, unspecified; E03.9 Hypothyroidism, unspecified; E53.8 Deficiency of other specified B group vitamins; Z91.14 Patient's other noncompliance with medication regimen; Z86.19 Personal history of other infectious and parasitic diseases; Z87.891 Personal history of nicotine dependence
CPT/HCPCS: 12345; 36415; 51702; 70450; 71045; 73030; 73502; 80048; 80053; 80307; 81001; 82140; 82607; 82746; 83036; 83605; 84443; 84484; 85025; 87086; 90686; 90732; 92610; 93005; 93306; 93880; 96105; 96372; 96375; 97110; 97116; 97161; 97167; 97530; 97535; 99283; G0378; J0743; J1644; J2405; J7050; Q0162